=== PATIENT | female | born 1985 | race Caucasian/White ===

== ENCOUNTER 2017-10-24 21:39 | Emergency (ER) | payer SELFPAY ==
[~2017-10-24] VITALS: Ht 167.6 cm; Wt 86.0 kg
[~2017-10-24 21:39] MED LIST: ACET-3161 PO; FERR-63 PO; MULT-1146 PO
[2017-10-25 01:20] VITALS: BP 105/54
== END 2017-10-25 01:37 | disposition home or self-care (01) ==
LOC: ER 21:48
DX: R56.9 Unspecified convulsions (principal); Z91.14 Patient's other noncompliance with medication regimen
CPT/HCPCS: 36415; 70450; 81025; 82947; 82962; 99285; Z7610

== ENCOUNTER 2018-03-14 20:48 | Emergency (ER) | payer SELFPAY ==
[~2018-03-14] VITALS: Ht 157.5 cm; Wt 91.0 kg
[2018-03-14] MEDS ORDERED: PHENYTOIN SODIUM EXTENDED 100MG CAPSULE PO ONE (22:45)
[2018-03-14 23:52] VITALS: BP 132/67
== END 2018-03-14 23:52 | disposition home or self-care (01) ==
LOC: ER 20:48
DX: Z76.0 Encounter for issue of repeat prescription (principal); G40.909 Epilepsy, unspecified, not intractable, without status epilepticus
CPT/HCPCS: 99283